=== PATIENT | female | born 1995 | race African-American/Black ===

== ENCOUNTER 2023-12-18 02:06 | Emergency (ER) | payer SELFPAY ==
--- NOTE | ~2023-12-18 | XR_ITS ---
EXAMINATION: XR ANKLE, RIGHT CLINICAL INFORMATION: Pain. COMPARISON: None available. TECHNIQUE: AP, lateral, and mortise views of the right ankle. FINDINGS: No fracture. Alignment is anatomic. No erosions. Joint spaces are maintained. There appears to be mild anterolateral soft tissue swelling. XR/XR ankle RT 2V IMPRESSION: Mild anterolateral soft tissue swelling. No acute fracture or dislocation.
--- NOTE | ~2023-12-18 | XR_ITS ---
EXAMINATION: XR FOOT, RIGHT CLINICAL INFORMATION: Pain. COMPARISON: None available. TECHNIQUE: AP, lateral, and oblique views of the right foot. FINDINGS: The bones and soft tissues are normal. No fracture. Alignment is anatomic. Joint spaces are maintained. XR/XR foot RT 2V IMPRESSION: No significant abnormality.
[2023-12-18 02:21] VITALS: BP 129/73; PULSE 87; RESP 16; TEMP 36.4; O2SAT 100; BMI 24.8
--- NOTE | 2023-12-18 03:31 | ED_ITS ---
HPI - Extremity Injury (Lower) General Chief Complaint: Extremity Injury, Lower Stated Complaint: R Foot pain Time Seen by Provider: 12/18/23 03:24 Source: patient Mode of arrival: ambulatory Limitations: no limitations History of Present Illness HPI Narrative: Apparently patient sprained her right ankle 2 days ago had swelling and pain on the lateral aspect able to ambulate with mild discomfort no other injuries Related Data Previous Rx's Medication Instructions Recorded ibuprofen 600 mg tablet 600 mg PO Q6H PRN fever or pain 12/18/23 #30 tabs Allergies Allergy/AdvReac Type Severity Reaction Status Date / Time shrimp Allergy Severe ANAPHYLAXIS Verified 12/18/23 02:21 Iodinated Contrast Media Allergy Unknown HIVES Verified 12/18/23 02:21 [CONTRAST, IV] SHELLFISH Allergy Severe ANAPHYLAXIS Uncoded 12/18/23 02:21 Contrast Dye Allergy Unknown anaphylaxis Uncoded 12/18/23 02:21 contrast dye Allergy Unknown Anaphylaxis Uncoded 12/18/23 02:21 Shell Fish Allergy Unknown anaphylaxis Uncoded 12/18/23 02:21 shellfish Allergy Unknown Anaphylaxis Uncoded 12/18/23 02:21 Shrimp Allergy Unknown anaphylaxis Uncoded 12/18/23 02:21 Review of Systems 2 Review of Systems: Yes all other systems are reviewed and are negative PMFSH Social History Social History Advance Directives: No Advance Directives Information Provided: No Physical Exam 2 Vital Signs: Vital Signs: Last Vital Signs Temp 97.6 F 12/18/23 02:21 Pulse 87 12/18/23 02:21 Resp 16 12/18/23 02:21 BP 129/73 12/18/23 02:21 Pulse Ox 100 12/18/23 02:21 O2 Del Method Room Air 12/18/23 02:21 BMI result Body Mass Index 24.8 Extrem: Ankle/foot/toe images: 1. Soft tissue swelling and tenderness no deformity neurovascular intact good range of movement Medical Decision Making Medical Decision Making MDM Narrative: Aircast was applied give ibuprofen x-ray negative for acute fracture Independent Interpretation I performed an independent interpretation of an: Plain X-Ray Discharge Plan Discharge Clinical Impression: Ankle sprain and strain Patient Disposition: Home, Self-Care Instructions: Ankle Sprain (ED) Additional Instructions: wear ankle Aircast for support Tylenol/Motrin for pain Prescriptions: New ibuprofen 600 mg tablet 600 mg PO Q6H PRN (Reason: fever or pain) Qty: 30 0RF
== END 2023-12-18 03:51 | disposition home or self-care (01) ==
PROVIDERS: Emergency Provider Internal Medicine; PCP Internal Medicine
DX: S93.401A Sprain of unspecified ligament of right ankle, initial encounter (principal); S96.911A Strain of unspecified muscle and tendon at ankle and foot level, right foot, initial encounter; X50.1XXA Overexertion from prolonged static or awkward postures, initial encounter; Y93.66 Activity, soccer; Y92.39 Other specified sports and athletic area as the place of occurrence of the external cause; Y99.9 Unspecified external cause status
CPT/HCPCS: 73600; 73620; 99283; 99284